=== PATIENT | male | born 1970 | race Caucasian/White ===

== ENCOUNTER 2023-04-21 19:03 | Outpatient (CLI) | payer OTHER ==
--- NOTE | 2023-04-22 18:06 | Ultrasound Report ---
PROCEDURE: Ankle Brachial Index INDICATIONS: PAIN IN LEFT LEG TECHNIQUE: Ankle-brachial indices were obtained bilaterally and recorded. COMPARISONS: None. FINDINGS: Right ankle brachial index (PORSHA): 1.24 Right brachial and ankle pressures measure 106/67 and 134/64 respectively Left ankle brachial index (PORSHA): 1.16 Left brachial and ankle pressures measure 108/67 and 126/67 respectively Right posterior tibial artery as well as dorsalis pedis velocities measure 63 cm/s, 85 cm per second with triphasic and biphasic/monophasic flow respectively. On the right posterior tibial artery measur ed 84 cm/s with biphasic/monophasic flow and dorsalis pedis artery 65 cm/s with biphasic/monophasic f low. IMPRESSION: Normal ABIs. Reviewed by: Nicole Travis MD on 04/22/2023 6:05 PM PDT Approved by: Nicole Travis MD on 04/22/2023 6:05 PM PDT Station ID: [id number]
== END 2023-04-21 19:04 | disposition home or self-care (01) ==
LOC: DI 19:03
PROVIDERS: ATTEND Physician Assistant
DX: M79.605 Pain in left leg (principal); R25.2 Cramp and spasm
CPT/HCPCS: 93922

== ENCOUNTER 2023-08-17 14:06 | Outpatient (CLI) | payer OTHER ==
--- NOTE | 2023-08-17 14:58 | XRAY Report ---
PROCEDURE: Hand 3 View BILAT INDICATIONS: BILAT HAND PAIN, BILAT WRIST PAIN TECHNIQUE: 3 views of the hand(s) acquired. COMPARISON: X-ray hand 10/17/2022 FINDINGS: Bones: No fractures or dislocations. No suspicious bony lesions. Minimal to mild scattered IP deg enerative narrowing bilaterally most notable at the DIP joints. Areas of scattered subchondral sclero sis are noted at the DIP and PIP joints bilaterally, most notable on the right. Soft tissues: No suspicious soft tissue calcifications or masses. IMPRESSION: Early changes of arthritic narrowing as above. Areas of periarticular lucency are present which may r epresent subchondral cyst versus periarticular erosions. Reviewed by: Nicole Travis MD on 08/17/2023 2:56 PM PDT Approved by: Nicole Travis MD on 08/17/2023 2:56 PM PDT Station ID: [id number]
--- NOTE | 2023-08-17 15:16 | XRAY Report ---
PROCEDURE: Wrist 3 View BILAT INDICATIONS: BILAT HAND PAIN, BILAT WRIST PAIN TECHNIQUE: 3 views of the wrist were acquired. COMPARISON: None. FINDINGS: Bones: No fractures or dislocations. No suspicious bony lesions. There are small scattered areas of lucency within the carpal bones bilaterally likely most prominent on the right. No periarticular o steophytes. Soft tissues: No suspicious soft tissue calcifications or masses. IMPRESSION: Small lucencies within the carpal bones. These are overall nonspecific and could represent subchondra l cysts. However, under appropriate clinical circumstances and laboratory correlated values, erosions cannot be excluded. Reviewed by: Nicole Travis MD on 08/17/2023 3:14 PM PDT Approved by: Nicole Travis MD on 08/17/2023 3:14 PM PDT Station ID: [id number]
== END 2023-08-17 14:07 | disposition home or self-care (01) ==
LOC: DI 14:06
PROVIDERS: ATTEND Physician Assistant
DX: M25.531 Pain in right wrist (principal); M25.532 Pain in left wrist; M19.042 Primary osteoarthritis, left hand; M19.041 Primary osteoarthritis, right hand

== ENCOUNTER 2024-05-14 12:33 | Outpatient (CLI) | payer OTHER ==
--- NOTE | 2024-05-14 19:32 | XRAY Report ---
PROCEDURE: Cervical Spine 2-3V INDICATIONS: BILATERAL FOOT PAIN, CERVICALGIA TECHNIQUE: 3 view(s) of the cervical spine were acquired. COMPARISON: None. FINDINGS: Bones: No fractures or dislocations to the C7 level. There is straightening of the cervical lordosi s. Anterolisthesis C3 on 4. Moderate disc space loss from C4 through C7 with mild anterior and home health speech therapist ior endplate spurs. The lateral masses of C1 appear intact on the odontoid view. No suspicious bony lesions. Soft tissues: No prevertebral soft tissue swelling. IMPRESSION: Cervical straightening and multilevel disc and endplate degeneration. Reviewed by: Catie Duval MD on 05/14/2024 7:30 PM PDT Approved by: Catie Duval MD on 05/14/2024 7:30 PM PDT Station ID: [id number]
--- NOTE | 2024-05-14 22:09 | XRAY Report ---
PROCEDURE: Foot 3+V BL INDICATIONS: BILATERAL FOOT PAIN, CERVICALGIA TECHNIQUE: 6 views of the foot were obtained. COMPARISON: None FINDINGS: Bones: No fractures or dislocations. No suspicious bony lesions. Soft tissues: Unremarkable. No radiopaque foreign body. IMPRESSION: Unremarkable bilateral foot radiographs Reviewed by: Herman Rg MD on 05/14/2024 8:33 PM AKDT Approved by: Herman Rg MD on 05/14/2024 8:33 PM AKDT Station ID: [id number]
== END 2024-05-14 12:34 | disposition home or self-care (01) ==
LOC: DI 12:33
PROVIDERS: ATTEND Physician Assistant
DX: M79.671 Pain in right foot (principal); M79.672 Pain in left foot; M47.812 Spondylosis without myelopathy or radiculopathy, cervical region; M50.31 Other cervical disc degeneration, high cervical region

== ENCOUNTER 2024-07-05 21:35 | Outpatient (CLI) | payer OTHER ==
--- NOTE | 2024-07-05 22:41 | Ultrasound Report ---
PROCEDURE: Testicle INDICATIONS: RIGHT TESTICULAR PAIN TECHNIQUE: Real-time scanning was performed of the scrotum and testicles, with image documentation. Color and p ulse Doppler interrogation was performed of both testicles. COMPARISON: None. FINDINGS: Right: Testicle is normal in size at 4.5 x 2.4 x 3.5 cm, and homogenous in echotexture. Poor visuali zation of the right epididymis, no gross abnormality. No hydrocele. No varicoceles. Overlying scrota l skin is normal in thickness. Left: Testicle is normal in size at 4.8 x 2.7 x 3.6 cm, and homogeneous in echotexture. Epididymis is normal in overall size and morphology. No hydrocele. No varicoceles. Overlying scrotal skin is n ormal in thickness. Doppler: Color and pulse Doppler demonstrate normal and symmetric arterial flow in both testicles. IMPRESSION: No evidence of torsion or significant hyperemia to suggest infection. Reviewed by: Yovani Conway MD on 07/05/2024 10:40 PM PDT Approved by: Yovani Conway MD on 07/05/2024 10:40 PM PDT Station ID: [id number]
== END 2024-07-05 21:36 | disposition home or self-care (01) ==
LOC: DI 21:35
PROVIDERS: ATTEND Student in an Organized Health Care Education/Training Program
DX: N50.811 Right testicular pain (principal)